=== PATIENT | male | born 2000 | race Two or more races ===

== ENCOUNTER 2023-11-16 19:34 | Emergency (ER) | payer OTHER ==
[~2023-11-16] VITALS: Ht 165.1 cm; Wt 61.2 kg
[2023-11-16 23:53] LABS: HEMATOCRIT 46.1 % (39.0-48.0); HEMOGLOBIN 15.6 g/dL (13-16.00); MEAN CELL VOLUME 89.8 fL (80.0-100.00); MEAN CORPUSCULAR HEMOGLOBIN 30.4 pg (27.00-32.0); MEAN CORPUSCULAR HGB CONC 33.8 g/dl (32.0-36.0); PLATELET COUNT 219 K/uL (150-450); RED BLOOD COUNT 5.13 M/uL (4.00-6.00); RED CELL DISTRIBUTION WIDTH 12.9 % (11.5-14.5)
[2023-11-17] MEDS ORDERED: MELOXICAM15 MG PO (02:21)
== END 2023-11-17 02:54 ==
LOC: ER 19:35
PROVIDERS: Emergency Medicine
DX: R07.89 Other chest pain (principal); Z20.822 Contact with and (suspected) exposure to COVID-19